=== PATIENT | female | born 1990 | race Caucasian/White ===

== ENCOUNTER 2018-08-25 23:52 | Emergency (ER) | payer OTHER ==
[~2018-08-25] VITALS: Ht 160 cm; Wt 108.9 kg
[2018-08-26] MEDS ORDERED: ALPRAZOLAM 0.0.25 M1 PO (00:04)
[2018-08-26 00:49] LABS: URINE BILIRUBIN NEGATIVE (Negative); URINE BLOOD NEGATIVE (Negative); URINE CLARITY CLEAR; URINE COLOR YELLOW; URINE GLUCOSE-RANDOM NEGATIVE (Negative); URINE KETONES NEGATIVE (Negative); URINE LEUKOCYTES-REFLEX NEGATIVE (Negative); URINE NITRITE-REFLEX NEGATIVE (Negative); URINE PROTEIN NEGATIVE (Negative); URINE UROBILINOGEN 0.2 E.U./dl (0.2-1.0)
[2018-08-26 01:00] LABS: ABSOLUTE BASOPHILS 0.1 thou/uL (0.0-0.2); ABSOLUTE EOSINOPHILS 0.8 thou/uL (0.0-0.7); ABSOLUTE LYMPHOCYTES 3.1 thou/uL (0.8-5.3); ABSOLUTE MONOCYTES 0.5 thou/uL (0.0-1.2); ABSOLUTE NEUTROPHILS 9.2 thou/uL (1.6-8.1); BASOPHILS 0.5 %; EOSINOPHILS 5.6 %; HEMATOCRIT 39.3 % (37.0-47.0); LYMPHOCYTES 22.8 %; MCH 27.2 pg (26.0-34.0); MCHC 33.1 g/dL (28.0-37.0); MCV 82.3 fL (80.0-100.0); MONOCYTES 3.8 %; MPV 8.1 fl. (7.2-11.1); NUCLEATED RBCS 0 /100WBC; PLATELET COUNT* 303 thou/uL (150-400); POLYS 67.3 %; RBC 4.77 mil/uL (4.20-5.00); RDW-CV 15.6 % (10.5-14.5); WBC 13.6 thou/uL (4.0-11.0)
[2018-08-26 01:13] LABS: CALCIUM 8.6 mg/dL (8.5-10.1); CREATININE 0.7 mg/dL (0.6-1.3); POTASSIUM 3.9 mmol/L (3.5-5.1)
[2018-08-26 01:17] LABS: ALBUMIN 3.6 g/dL (3.4-5.0); TOTAL BILIRUBIN 0.1 mg/dL (<0.1-1.0); TOTAL PROTEIN 7.4 g/dL (6.4-8.2)
[2018-08-26] MEDS ORDERED: NORCO 7.5-3251 EACH PO (03:10)
[2018-08-26] MEDS ORDERED: CLEOCIN HCL150 MG PO (03:10)
[2018-08-26] MEDS ORDERED: CLINDAMYCIN HC300 MG PO (03:12)
[2018-08-26 04:08] VITALS: BP 138/79
== END 2018-08-26 04:08 | disposition home or self-care (01) ==
LOC: M.ERS 23:52
PROVIDERS: Emergency Medicine
DX: L53.9 Erythematous condition, unspecified (principal); M25.511 Pain in right shoulder; R60.9 Edema, unspecified